=== PATIENT | male | born 1995 ===

== ENCOUNTER 2018-02-05 13:20 | Emergency (ER) | payer OTHER ==
[~2018-02-05] VITALS: Ht 165.1 cm; Wt 67.6 kg
== END 2018-02-05 14:23 | disposition home or self-care (01) ==
LOC: ER 13:20
DX: S00.83XA Contusion of other part of head, initial encounter (principal); R42 Dizziness and giddiness; V49.9XXA Car occupant (driver) (passenger) injured in unspecified traffic accident, initial encounter; Y93.89 Activity, other specified; Y92.488 Other paved roadways as the place of occurrence of the external cause; Y99.8 Other external cause status